=== PATIENT | female | born 1985 | race African-American/Black ===

== ENCOUNTER 2020-03-10 17:12 | Inpatient (IN) | payer MEDICAID ==
[~2020-03-10] VITALS: Ht 167.6 cm; Wt 158.8 kg
[2020-03-10 18:20] LABS: CLARITY URINE CLOUDY (CLEAR); COLOR URINE YELLOW (YELLOW); KETONES URINE NEGATIVE (NEGATIVE); LEUKOCYTE ESTERASE URINE TRACE (NEGATIVE); NITRITE URINE NEGATIVE (NEGATIVE); OCCULT BLOOD URINE NEGATIVE (NEGATIVE); PROTEIN URINE 3+ (NEGATIVE); UROBILINOGEN URINE 0.2 E.U./dL (0.2-1.0)
[2020-03-10 18:22] LABS: BASOPHILS % 0.5 % (0.0-2.0); EOSINOPHILS % 1.2 % (0.0-5.0); HEMATOCRIT. 33.5 % (36.0-48.0); HEMOGLOBIN. 11.4 g/dL (12.0-16.0); LYMPHOCYTES % 15.4 % (20.0-50.0); MEAN CORPUSCULAR HEMOGLOBIN 27.9 pg (28.0-32.0); MEAN CORPUSCULAR VOLUME 81.6 fL (81.0-99.0); MEAN PLATELET VOLUME 10.1 fl (7.4-10.4); MONOCYTES % 6.2 % (2.0-8.0); NEUTROPHILS % 76.7 % (40.0-76.0); PLATELET 188 x1000/uL (130-400); RED CELL DISTRIBUTION WIDTH 16.5 % (11.6-14.6)
[2020-03-10 18:29] LABS: CHLORIDE 111 mEq/L (98-107)
[2020-03-10 18:30] LABS: D-DIMER 2.21 mg/L FEU (<0.50); INR 0.9; PARTIAL THROMBOPLASTIN TIME 30.2 sec (23.4-31.0); PROTHROMBIN TIME 9.8 sec (9.6-11.0)
[2020-03-10] MEDS ORDERED: MAGNESIUM 20 G PREMIX (L & D) 500 ML IV SCH (18:48)
[2020-03-10] MEDS ORDERED: METHYLERGONOVINE MALEATE 0.2 MG/ML IM PRN (19:00)
[2020-03-10] MEDS ORDERED: NALOXONE HCL 0.4 MG/ML 1ML VIAL IM PRN (19:00)
[2020-03-10] MEDS ORDERED: LABETALOL HCL 5MG/ML VIAL 20ML IV PRN ×4 (19:00→22:00)
[2020-03-10] MEDS ORDERED: BUTORPHANOL TARTRATE 2 MG/ML VIAL IV PRN (19:00)
[2020-03-10] MEDS ORDERED: CARBOPROST TROMETHAMINE 250 MCG/ML AMPUL IM PRN (19:00)
[2020-03-10] MEDS ORDERED: LIDOCAINE HCL 1% 20ML VIAL (Pyxis) INJ INFIL SCH (19:00)
[2020-03-10] MEDS ORDERED: AMPICILLIN 2,000 MG in SODIUM CHLORIDE 0.9% 100 ML IV NR (19:00)
[2020-03-10] MEDS: LABETALOL HCL 200MG TABLET PO SCH (19:07)
[2020-03-10] MEDS: BETAMETHASONE ACET/BETAMET 30 MG/5 ML VIAL IM SCH (19:08)
[2020-03-10] MEDS: LACTATED RINGERS 1,000 ML IV SCH (19:09)
[2020-03-10] MEDS: MAGNESIUM 20 G PREMIX (L & D) 500 ML IV SCH (19:13)
[2020-03-10 21:14] LABS: HEPATITIS B SURFACE ANTIGEN NEGATIVE
[2020-03-10 21:22] LABS: *AMPHETAMINES SCREEN URINE NEGATIVE (NEGATIVE); *BARBITURATES SCREEN URINE NEGATIVE (NEGATIVE); *BENZODIAZEPINES SCREEN URINE NEGATIVE (NEGATIVE); *COCAINE SCREEN URINE NEGATIVE (NEGATIVE); METHADONE URINE SCREEN NEGATIVE (NEGATIVE)
[2020-03-10 21:23] LABS: CANNABINOID URINE SCREEN NEGATIVE (NEGATIVE); OPIATES URINE SCREEN NEGATIVE (NEGATIVE); PHENCYCLIDINE URINE SCREEN NEGATIVE (NEGATIVE)
[2020-03-10] MEDS ORDERED: NIFEDIPINE 10MG CAPSULE PO PRN ×2 (22:00)
[2020-03-10] MEDS ORDERED: FERR325T6 PO (22:08)
[2020-03-10] MEDS ORDERED: PNV1TABL50 PO (22:08)
[2020-03-10] MEDS ORDERED: LABE200T8 PO (22:08)
[2020-03-11] MEDS: MAGNESIUM 20 G PREMIX (L & D) 500 ML IV SCH ×2 (01:58→14:36)
[2020-03-11] MEDS: AMPICILLIN 1,000 MG in SODIUM CHLORIDE 0.9% 50 ML IV SCH ×4 (02:03→20:10)
[2020-03-11] MEDS: LACTATED RINGERS 1,000 ML IV SCH ×2 (06:22→19:12)
[2020-03-11] MEDS ORDERED: LABETALOL HCL 5MG/ML VIAL 20ML IV PRN (08:00)
[2020-03-11] MEDS ORDERED: NIFEDIPINE 10MG CAPSULE PO PRN ×2 (08:00)
[2020-03-11] MEDS: LABETALOL HCL 200MG TABLET PO SCH ×2 (09:38→21:07)
[2020-03-11 19:03] LABS: CLARITY URINE CLEAR (CLEAR); COLOR URINE ORANGE (YELLOW); KETONES URINE 2+ (NEGATIVE); LEUKOCYTE ESTERASE URINE TRACE (NEGATIVE); NITRITE URINE NEGATIVE (NEGATIVE); OCCULT BLOOD URINE 3+ (NEGATIVE); PROTEIN URINE 1+ (NEGATIVE); SPECIFIC GRAVITY URINE 1.015 (1.005-1.030); UROBILINOGEN URINE 0.2 E.U./dL (0.2-1.0)
[2020-03-11 19:03] LABS: BASOPHILS % 0.2 % (0.0-2.0); EOSINOPHILS % 0.1 % (0.0-5.0); HEMATOCRIT. 31.8 % (36.0-48.0); HEMOGLOBIN. 10.7 g/dL (12.0-16.0); LYMPHOCYTES % 10.9 % (20.0-50.0); MEAN CORPUSCULAR HEMOGLOBIN 27.5 pg (28.0-32.0); MEAN CORPUSCULAR VOLUME 81.8 fL (81.0-99.0); MEAN PLATELET VOLUME 9.8 fl (7.4-10.4); MONOCYTES % 4.8 % (2.0-8.0); PLATELET 186 x1000/uL (130-400); RED BLOOD CELL COUNT 3.89 mill/uL (4.2-5.4); RED CELL DISTRIBUTION WIDTH 16.5 % (11.6-14.6)
[2020-03-11 19:07] LABS: CHLORIDE 106 mEq/L (98-107)
[2020-03-11] MEDS: BETAMETHASONE ACET/BETAMET 30 MG/5 ML VIAL IM SCH (19:07)
[2020-03-11 19:14] LABS: D-DIMER 1.49 mg/L FEU (<0.50); INR 0.9; PARTIAL THROMBOPLASTIN TIME 27.1 sec (23.4-31.0); PROTHROMBIN TIME 9.6 sec (9.6-11.0)
[2020-03-12] MEDS: AMPICILLIN 1,000 MG in SODIUM CHLORIDE 0.9% 50 ML IV SCH (02:26)
[2020-03-12] MEDS: LABETALOL HCL 200MG TABLET PO SCH ×2 (08:53→21:00)
[2020-03-12] MEDS: MAGNESIUM 20 G PREMIX (L & D) 500 ML IV SCH (09:26)
[2020-03-12] MEDS: LACTATED RINGERS 1,000 ML IV SCH ×2 (14:25→21:36)
[2020-03-12] MEDS: MISOPROSTOL 100MCG TABLET VG PRN (20:17)
[2020-03-13] MEDS: MISOPROSTOL 100MCG TABLET VG PRN (00:23)
[2020-03-13] MEDS ORDERED: TERBUTALINE SULFATE 1MG/ML VIAL SUBCUT NR (02:15)
[2020-03-13] MEDS ORDERED: MORPHINE SULFATE/PF 1MG/ML 10ML AMP ONE (02:57)
[2020-03-13] MEDS ORDERED: FENTANYL CITRATE/PF 50MCG/ML 2ML VIAL ONE (02:57)
[2020-03-13] MEDS: LACTATED RINGERS 1,000 ML IV SCH (03:01)
[2020-03-13] MEDS ORDERED: EPHEDRINE SULFATE 50MG/ML VIAL ONE (04:53)
[2020-03-13] MEDS ORDERED: ONDANSETRON HCL 4MG/2ML INJ ONE (04:53)
[2020-03-13] MEDS ORDERED: OXYTOCIN 10 UNITS/ML 1ML ONE (04:53)
[2020-03-13] MEDS ORDERED: SODIUM CHLORIDE 0.9% 10ML VIAL ONE (04:53)
[2020-03-13] MEDS ORDERED: CEFAZOLIN SODIUM 1000MG/VIAL ONE (04:53)
[2020-03-13] MEDS ORDERED: KETOROLAC 30MG/ML VIAL IV PRN ×2 (05:30→05:45)
[2020-03-13] MEDS ORDERED: BISACODYL 10MG SUPP PR PRN (05:30)
[2020-03-13] MEDS ORDERED: IBUPROFEN 400MG TABLET PO PRN (05:30)
[2020-03-13] MEDS ORDERED: RHO(D) IMMUNE GLOBULIN 300 MCG/SYR IM PRN (05:30)
[2020-03-13] MEDS ORDERED: BUTORPHANOL TARTRATE 2 MG/ML VIAL IM PRN (05:45)
[2020-03-13] MEDS ORDERED: ONDANSETRON HCL 4MG/2ML INJ IV PRN (05:45)
[2020-03-13] MEDS ORDERED: HYDROMORPHONE HCL/PF 2MG/ML CPJ IV PRN (05:45)
[2020-03-13] MEDS ORDERED: MEPERIDINE HCL/PF 25MG/ML CPJ IV PRN (05:45)
[2020-03-13] MEDS ORDERED: LABETALOL 5MG/ML SYR 20 MG/4 ML SYRINGE IV PRN (05:45)
[2020-03-13] MEDS ORDERED: DIPHENHYDRAMINE 50MG/ML VIAL IV PRN (05:45)
[2020-03-13] MEDS: DEXT 5%/LR + PITOCIN 20UNITS/L 1,000 ML IV SCH ×3 (05:47→06:55)
[2020-03-13] MEDS: MAGNESIUM 20 G PREMIX (L & D) 500 ML IV SCH (07:24)
[2020-03-13 09:00] VITALS: BP 118/64
[2020-03-13] MEDS ORDERED: LABETALOL HCL 200MG TABLET PO SCH ×2 (09:00)
[2020-03-13 09:40] VITALS: BP 128/83
[2020-03-13 12:23] VITALS: BP 121/61
[2020-03-13 20:00] VITALS: BP 136/84
[2020-03-13] MEDS: LABETALOL HCL 200MG TABLET PO SCH (21:22)
[2020-03-14] VITALS: BP 116/65
[2020-03-14] MEDS: IBUPROFEN 800MG TABLET PO PRN ×2 (02:24→19:01)
[2020-03-14 04:00] VITALS: BP 124/68
[2020-03-14 06:46] LABS: BASOPHILS % 0.5 % (0.0-2.0); EOSINOPHILS % 1.1 % (0.0-5.0); HEMATOCRIT. 31.5 % (36.0-48.0); HEMOGLOBIN. 10.6 g/dL (12.0-16.0); MEAN CORPUSCULAR HEMOGLOBIN 27.7 pg (28.0-32.0); MEAN CORPUSCULAR VOLUME 82.5 fL (81.0-99.0); MEAN PLATELET VOLUME 9.8 fl (7.4-10.4); MONOCYTES % 6.7 % (2.0-8.0); NEUTROPHILS % 76.7 % (40.0-76.0); PLATELET 201 x1000/uL (130-400); RED BLOOD CELL COUNT 3.81 mill/uL (4.2-5.4); RED CELL DISTRIBUTION WIDTH 16.5 % (11.6-14.6)
[2020-03-14 08:00] VITALS: BP 137/75
[2020-03-14] MEDS: LABETALOL HCL 200MG TABLET PO SCH ×2 (09:05→21:00)
[2020-03-14] MEDS: LACTATED RINGERS 1,000 ML IV SCH (09:07)
[2020-03-14 15:40] VITALS: BP 159/84
[2020-03-14 16:40] VITALS: BP 137/74
[2020-03-14 20:00] VITALS: BP 129/72
[2020-03-15] VITALS: BP 145/76
[2020-03-15 04:00] VITALS: BP 142/76
[2020-03-15 08:00] VITALS: BP 150/83
[2020-03-15] MEDS: IBUPROFEN 800MG TABLET PO PRN (08:56)
[2020-03-15] MEDS: LABETALOL HCL 200MG TABLET PO SCH (08:56)
[2020-03-15] MEDS ORDERED: IBUP-2030 PO (11:55)
== END 2020-03-15 12:25 | disposition home or self-care (01) | DRG 540 ==
LOC: 8 EST LDRP 17:12 → OBSVTOIN 17:12 → 8EST 03-13 08:45
PROVIDERS: ADMIT Obstetrics & Gynecology; ATTEND Obstetrics & Gynecology
PROC: 10D00Z1 Extraction of Products of Conception, Low, Open Approach (ICD-10-PCS; principal; 2020-03-13)
DX: O11.4 Pre-existing hypertension with pre-eclampsia, complicating childbirth (principal); O69.81X0 Labor and delivery complicated by cord around neck, without compression, not applicable or unspecified; E66.01 Morbid (severe) obesity due to excess calories; O99.214 Obesity complicating childbirth; D57.3 Sickle-cell trait; O77.9 Labor and delivery complicated by fetal stress, unspecified; O10.92 Unspecified pre-existing hypertension complicating childbirth; O99.324 Drug use complicating childbirth; F16.10 Hallucinogen abuse, uncomplicated; Z3A.34 34 weeks gestation of pregnancy; Z37.0 Single live birth; Z82.49 Family history of ischemic heart disease and other diseases of the circulatory system; Z83.3 Family history of diabetes mellitus; Z79.899 Other long term (current) drug therapy
CPT/HCPCS: 36415; 80053; 80305; 80359; 81003; 83735; 84550; 85025; 85379; 85384; 86592; 86703; 86762; 86850; 86900; 86920; 87070; 87340; 88307; 99281; G0378; J0290; J0690; J0702; J1885; J2274; J2405; J2590; J3010; J3105; J3475; J3490; J7050; J7120